=== PATIENT | female | born 1940 | race Caucasian/White ===

== ENCOUNTER 2018-11-26 08:19 | Day surgery (SDC) | payer MEDICARE ==
[~2018-11-26 08:19] MED LIST: Acetaminophen TAB* 325 MG PO PRN; Buffered Lidocaine 1% SYRIN* 1 ML/SYRINGE INTRADERM ONE
[2018-11-26] MEDS ORDERED: Midazolam* 1 MG/ML 2 ML VIAL (2 MG) ONE (10:03)
[2018-11-26 10:55] VITALS: BP 140/69
--- NOTE | 2018-11-26 11:36 | OP ---
DATE OF OPERATION: 11/26/18 [facility] DATE OF : 40 SURGEON: Musa Matos M.D. PREOPERATIVE DIAGNOSIS: Cataract, left eye. POSTOPERATIVE DIAGNOSIS: Cataract, left eye. OPERATIVE PROCEDURE: Extracapsular cataract extraction with intraocular lens implant, left eye. DESCRIPTION OF PROCEDURE: The patient was brought to the operating room after being given 1/2% Alcaine with epinephrine drops in the preoperative area. The eye was prepped and draped in the usual sterile fashion. Sterile drape and eyelid speculum were placed. Again, topical 1/2% Alcaine with epinephrine was given. A paracentesis incision was made at the 3 o'clock position with the No.75 blade. Clear cornea incision 2.2 x 2.2-mm was created at the 6 o'clock position starting at the anterior limbus using the 2.2-mm keratome. The anterior chamber was irrigated with 0.4 mL of 1% non-preservative intracameral lidocaine and filled with DisCoVisc. A capsulorrhexis was completed using the cystotome and the Utrata forceps. Hydrodissection was performed with balanced salt solution. The lens nucleus was removed with the Phacoemulsification handpiece without incident. Cortex was removed with the irrigation-aspiration handpiece. The capsular bag was re-inflated using DisCoVisc and an [id number] implant was inserted with the shooter. The irrigation-aspiration handpiece was used to remove all residual DisCoVisc. The eye was refilled with balanced salt solution and the wound checked and found to be watertight. Topical Maxitrol drops were given. [id number]/[facility] #: [id number] [facility]ENT[facility]heng
[2018-11-26] MEDS ORDERED: acetaZOLAMIDE TAB* 250 MG ONE (16:35)
[2018-11-26] MEDS ORDERED: Phenylephrine OPHTH SOL 2.5%* 2 ML ONE (16:35)
[2018-11-26] MEDS ORDERED: Ketorolac 0.5% OPHTH (NF) 0.5 % 5 ML BTL ONE (16:35)
[2018-11-26] MEDS ORDERED: Neomycin/Polymy/Dex OPTH.SUSP* MAXITROL 0.1% 5 ML ONE (16:35)
[2018-11-26] MEDS ORDERED: Povidone Iodine 5% OPTH* 30 ML BTL ONE (16:35)
[2018-11-26] MEDS ORDERED: Lidocaine 2% w/ EPI 1:200,000* 20 ML SDV VIAL ONE (16:35)
[2018-11-26] MEDS ORDERED: Lidocaine 1% MPF ** 5 ML VIAL ONE (16:35)
[2018-11-26] MEDS ORDERED: Cyclopentolate 1% OPTH.SOL* 2 ML BTL ONE (16:35)
[2018-11-26] MEDS ORDERED: Proparacaine 0.5% OPHTH.SOL* 15 ML BTL ONE (16:35)
== END 2018-11-26 11:08 | disposition home or self-care (01) ==
LOC: OREAST 08:19
PROVIDERS: ATTEND Specialist
DX: H25.812 Combined forms of age-related cataract, left eye (principal); H35.373 Puckering of macula, bilateral; Z95.1 Presence of aortocoronary bypass graft; I10 Essential (primary) hypertension; E78.00 Pure hypercholesterolemia, unspecified; E03.9 Hypothyroidism, unspecified; M10.9 Gout, unspecified; I25.2 Old myocardial infarction
CPT/HCPCS: A9270-GY; J2250; V2632

== ENCOUNTER 2018-12-03 08:58 | Day surgery (SDC) | payer MEDICARE ==
[~2018-12-03 08:58] MED LIST changes: -Acetaminophen TAB* 325 MG PO PRN
[2018-12-03] MEDS ORDERED: Phenylephrine OPHTH SOL 2.5%* 2 ML ONE (09:53)
[2018-12-03] MEDS ORDERED: acetaZOLAMIDE TAB* 250 MG ONE (09:53)
[2018-12-03] MEDS ORDERED: Lidocaine 1% MPF ** 5 ML VIAL ONE (09:53)
[2018-12-03] MEDS ORDERED: Neomycin/Polymy/Dex OPTH.SUSP* MAXITROL 0.1% 5 ML ONE (09:53)
[2018-12-03] MEDS ORDERED: Ketorolac 0.5% OPHTH (NF) 0.5 % 5 ML BTL ONE (09:53)
[2018-12-03] MEDS ORDERED: Lidocaine 2% w/ EPI 1:200,000* 20 ML SDV VIAL ONE (09:53)
[2018-12-03] MEDS ORDERED: Cyclopentolate 1% OPTH.SOL* 2 ML BTL ONE (09:53)
[2018-12-03] MEDS ORDERED: Povidone Iodine 5% OPTH* 30 ML BTL ONE (09:53)
[2018-12-03] MEDS ORDERED: Proparacaine 0.5% OPHTH.SOL* 15 ML BTL ONE (09:54)
[2018-12-03] MEDS ORDERED: Lidocaine 2% PF * 5 ML VIAL ONE (11:13)
[2018-12-03] MEDS ORDERED: Propofol* 10 MG/ML 20 ML BTL ONE (11:13)
--- NOTE | 2018-12-03 12:10 | OP ---
DATE OF OPERATION: 12/03/18 [facility] DATE OF : 40 SURGEON: Musa Matos M.D. PREOPERATIVE DIAGNOSIS: Cataract, right eye. POSTOPERATIVE DIAGNOSIS: Cataract, right eye. OPERATIVE PROCEDURE: Extracapsular cataract extraction with intraocular lens implant, right eye. DESCRIPTION OF PROCEDURE: The patient was brought to the operating room after being given 1/2% Alcaine with epinephrine drops in the preoperative area. The eye was prepped and draped in the usual sterile fashion. Sterile drape and eyelid speculum were placed. Again, topical 1/2% Alcaine with epinephrine was given. A paracentesis incision was made at the 9 o'clock position with the No.75 blade. Clear cornea incision 2.2 x 2.2-mm was created at the 12 o'clock position starting at the anterior limbus using the 2.2-mm keratome. The anterior chamber was irrigated with 0.4 mL of 1% non-preservative intracameral lidocaine and filled with DisCoVisc. A capsulorrhexis was completed using the cystotome and the Utrata forceps. Hydrodissection was performed with balanced salt solution. The lens nucleus was removed with the Phacoemulsification handpiece without incident. Cortex was removed with the irrigation-aspiration handpiece. The capsular bag was re-inflated using DisCoVisc and an [id number] implant was inserted with the shooter. The irrigation-aspiration handpiece was used to remove all residual DisCoVisc. The eye was refilled with balanced salt solution and the wound checked and found to be watertight. Topical Maxitrol drops were given. [id number]/[facility] #: [id number] [facility]
[2018-12-03 12:20] VITALS: BP 136/64
== END 2018-12-03 12:00 | disposition home or self-care (01) ==
LOC: OREAST 08:58
PROVIDERS: ATTEND Specialist
DX: H25.811 Combined forms of age-related cataract, right eye (principal); Z95.1 Presence of aortocoronary bypass graft; H35.373 Puckering of macula, bilateral; Z88.0 Allergy status to penicillin; I10 Essential (primary) hypertension; E78.00 Pure hypercholesterolemia, unspecified; M10.9 Gout, unspecified; I25.10 Atherosclerotic heart disease of native coronary artery without angina pectoris; G47.33 Obstructive sleep apnea (adult) (pediatric); E03.9 Hypothyroidism, unspecified; M79.7 Fibromyalgia
CPT/HCPCS: A9270-GY; J2704; V2632

== ENCOUNTER 2019-05-27 13:55 | Emergency (ER) | payer MEDICARE ==
--- OUTSIDE RECORDS SUMMARY | 2019-05-27 14:05 | XMS REPORT | Continuity of Care Document ---
:1940 External Reference #:[id number] Author Name Sunni Hastings MD (transmitted by agent of provider Judy Ospina) Address [address] [place] [address] Care Team Providers Name Role Phone Offset Label [facility] [facility] - Care Team Information Produce Weigher Prosthetic/Orthotic Supplier Donya Orr MD - Internal Medicine Care Team Information Produce Weigher Problems Description No Information Available Social History Type Date Description Comments Sex Unknown Tobacco Use Start: Unknown Never Smoked Cigarettes Smoking Status Reviewed: 05/06/19 Never Smoked Cigarettes ETOH Use Denies alcohol use Tobacco Use Start: Unknown Patient has never smoked Recreational Drug Use Denies Drug Use Exercise Type/Frequency Exercises sporadically Allergies, Adverse Reactions, Alerts Active Allergies Reaction Severity Comments Date Darvon 03/10/2019 Motrin 03/10/2019 Statins 03/10/2019 Altace 03/10/2019 Tricor 03/10/2019 Morphine Sulfate 03/10/2019 Gantrisin Pediatric 03/10/2019 Penicillin G Potassium 03/10/2019 Avelox 03/10/2019 Tetracycline 03/10/2019 Codeine Phosphate 03/10/2019 Ceclor 03/10/2019 Medications Active Medications SIG Qnty Indications Ordering Provider Date Allopurinol 1 by mouth every Unknown 300mg Tablets day Aspirin 81 1 by mouth every Unknown 81mg Tablets DR day Multi Vitamin 1 by mouth every Unknown Tablets day Ezetimibe 1 by mouth every Unknown 10mg Tablets day Hydrocodone-Acetaminoph 1 or 2 tabs by Unknown en mouth every 6-8 5-325mg Tablets hours as needed for pain Levothyroxine Sodium 1 by mouth every Unknown 125mcg day Tablets Losartan Potassium 1 by mouth every Unknown 100mg day Tablets Metoprolol Succinate ER 1 by mouth every Unknown day 100mg Tablets ER 24HR Vitamin D3 1 by mouth every Unknown 25mcg (1000 Ut) day Capsules Immunizations Description No Information Available Vital Signs Date Vital Result Comment 05/06/2019 9:07am Height 63 inches 5'3" Weight 215.00 lb BMI (Body Mass Index) 38.1 kg/m2 Results Description No Information Available Procedures Date Code Description Status 02/05/2019 24465 ECHO Transthorasic Realtime 2D W Doppler & Color Flow Hosp Completed Medical Devices Description No Information Available Encounters Description No Information Available Assessments Date Code Description Provider 05/06/2019 I12.9 Hypertensive chronic kidney disease with Sunni Hastings MD stage 1 through stage 4 chronic kidney disease, or unspecified chronic kidney disease 05/06/2019 N18.4 Chronic kidney disease, stage 4 (severe) Sunni Hastings MD 05/06/2019 R80.9 Proteinuria, unspecified Sunni Hastings MD 02/05/2019 I35.0 Nonrheumatic aortic (valve) stenosis Ridge Poon DO [facility] Plan of Treatment Future Appointment(s):08/05/2019 9:00 am - Sunni Hastings MD at [id number] /29/2020 - Sunni Hastings MDI12.9 Hypertensive chronic kidney disease with stage 1 through stage 4 chronic kidney disease, or unspecified chronic kidney [id number] Chronic kidney disease, stage 4 (severe)Comments:- check Labs today and at next visit in 3 monthsFollow up:3 [id number] Proteinuria, unspecifiedComments:- recheck UA and UPCR next visit Functional Status Description No Information Available Mental Status Description No Information Available Referrals Description No Information Available
[2019-05-27 15:13] VITALS: BP 152/80
--- NOTE | 2019-05-27 16:25 | UC ---
UC General HPI - HPI Summary HPI Summary: PATIENT COMPLAINS OF SEVERAL DAYS OF INCREASING BILATERAL FOOT AND ANKLE EDEMA. SHE ALSO HAS LEFT LEG PAIN AND WONDERS IF IT'S HER SCIATICA ACTING UP. SHE ALSO HAS A HISTORY OF ARTHRITIS. PATIENT COMPLAINS OF A 10 POUND WEIGHT GAIN OVER THE PAST 1 MONTH. SHE IS EASILY FATIGUED WITH MINIMAL EXERTION AND HAS A HISTORY OF 3 VESSEL CABG 9 YEARS AGO, STAGE IV KIDNEY DISEASE AND ARRIVES WITH A BLOOD PRESSURE OF 199/97. SHE DENIES CHEST PAIN OR SHORTNESS OF BREATH AT REST. - History of Current Complaint Chief Complaint: UCLowerExtremity Stated Complaint: LT LEG PAIN Time Seen by Provider: 05/27/19 15:42 Hx Obtained From: Patient, Family/Powerhouse Mechanic - SON Onset/Duration: Gradual Onset, Lasting Days, Still Present Timing: Constant Onset Severity: Moderate Current Severity: Moderate Pain Intensity: 8 Associated Signs & Symptoms: Negative: Cough, Chest Pain, Dizziness, Fever, Headache, Nausea, Syncope, SOB - Allergy/Home Medications Allergies/Adverse Reactions: Allergies Allergy/AdvReac Type Severity Reaction Status Date / Time MS Cefaclor [From Ceclor] Allergy Mild Hives Verified 05/27/19 14:58 MS Codeine [Codeine] Allergy Mild Hives Verified 05/27/19 14:58 MS Ibuprofen [From Motrin] Allergy Mild severe Verified 05/27/19 14:58 edema MS Meperidine Allergy Mild Hives Verified 05/27/19 14:58 [From Demerol HCl] MS Morphine [Morphine] Allergy Mild Hives Verified 05/27/19 14:58 MS Naproxen [From Aleve] Allergy Mild severe Verified 05/27/19 14:58 edema MS Penicillins [Penicillins] Allergy Mild Hives Verified 05/27/19 14:58 MS Ramipril [From Altace] Allergy Mild Edema Verified 05/27/19 14:58 MS Simvastatin [From Zocor] Allergy Mild Hives Verified 05/27/19 14:58 MS Statins [Statins] Allergy Mild severe Verified 05/27/19 14:58 edema MS Fenofibrate [From Tricor] Allergy Swelling Verified 05/27/19 14:58 MS Moxifloxacin [From Avelox] Allergy Swelling Verified 05/27/19 14:58 MS Propoxyphene [From Darvon] Allergy Swelling Verified 05/27/19 14:58 MS Sulfisoxazole Allergy Blurred Verified 05/27/19 14:58 [From Gantrisin] Vision MS Tetracycline Allergy Nausea And Verified 05/27/19 14:58 [Tetracycline] Vomiting Home Medications: Home Medications Aspirin [Aspir 81] 81 mg PO QAM 08/03/12 [History Confirmed 05/27/19] Hydrocodone/Acetamin 5/500(NF) [Vicodin 5 MG/500 MG (NF)] 1 tab PO QID PRN 08/03 [History Confirmed 05/27/19] Levothyroxine TAB* [Synthroid 125 MCG TAB*] 125 mcg PO QAM 08/03/12 [History Confirmed 05/27/19] Allopurinol [Zyloprim 300 MG TAB] 300 mg PO QAM 11/21/18 [History Confirmed ] Cholecalciferol (Vitamin D3) [Vitamin D3] 1,000 unit PO QAM 11/21/18 [History Confirmed 05/27/19] Ezetimibe TAB* [Zetia TAB*] 10 mg PO QAM 11/21/18 [History Confirmed 05/27/19] Losartan Potassium 100 mg PO QAM 11/21/18 [History Confirmed 05/27/19] Metoprolol Succinate 100 mg PO QAM 11/21/18 [History Confirmed 05/27/19] PMH/Surg Hx/FS Hx/Imm Hx - Additional Past Medical History Additional PMH: FIBROMYALGIA Endocrine History: Hypothyroidism Cardiovascular History: Cardiac Disease - 3V CABG, Hypertension Other Cancer History: SKIN CANCER - Surgical History Surgical History: Yes Surgery Procedure, Year, and Place: left shoulder repair. parathyroid removed. OPEN HEART SURGERY - Family History Known Family History: Negative: Hypertension, Diabetes - Social History Alcohol Use: None Substance Use Type: None Smoking Status (MU): Never Smoked Tobacco Have You Smoked in the Last Year: No Review of Systems All Other Systems Reviewed And Are Negative: Yes Constitutional: Positive: Fatigue ENT: Positive: Negative Respiratory: Positive: Shortness Of Breath Cardiovascular: Positive: Negative Gastrointestinal: Positive: Negative Musculoskeletal: Positive: Edema Physical Exam Triage Information Reviewed: Yes Appearance: Well-Appearing, No Pain Distress, Well-Nourished Vital Signs: Initial Vital Signs Temp 98.5 F 05/27/19 14:47 Pulse 66 05/27/19 14:47 Resp 18 05/27/19 14:47 BP 199/97 05/27/19 14:47 Pulse Ox 99 05/27/19 14:47 Vital Signs Reviewed: Yes Eyes: Positive: Conjunctiva Clear ENT: Positive: Hearing grossly normal Neck: Positive: Supple Respiratory Exam: Normal Cardiovascular Exam: Normal Abdomen Description: Positive: Soft Musculoskeletal: Positive: Edema @ - 2+ PITTING EDEMA BILATERAL FEET/ANKLES Neurological: Positive: Alert Psychological: Positive: Normal Response To Family, Age Appropriate Behavior Skin: Negative: Rashes Course/Dx - Course Course Of Treatment: PATIENT PRESENTS COMPLAINING OF A FEW DAYS OF LEFT LEG PAIN. HAS HAD SCIATICA DISCOMFORT IN THE PAST AND WONDERS IF THIS IS THE CAUSE OF HER PAIN HOWEVER SHE ALSO HAS WORSENING BILATERAL FOOT/ANKLE EDEMA, FATIGUE AND A 10 POUND WEIGHT GAIN IN THE SETTING OF A HISTORY OF A 3 VESSEL CABG 9 YEARS AGO AND STAGE IV KIDNEY DISEASE. BP ELEVATED IN THE UC. PT OFFERED TRANSPORT TO THE ER BY AMBULANCE BUT DECLINES. ADVISED THAT BY NOT TRAVELING IN A MONITORED SETTING SHE COULD BE RISKING WORSENING OF HER CONDITION THAT COULD POSE A THREAT TO HER LIFE, HEALTH AND MEDICAL SAFETY. SHE VERBALIZES UNDERSTANDING AND CONTINUES TO DECLINE AMBULANCE TRANSFER. - Diagnoses Provider Diagnosis: Peripheral edema Discharge ED - Sign-Out/Discharge Documenting (check all that apply): Patient Departure All imaging exams completed and their final reports reviewed: No Studies - Discharge Plan Condition: Stable Disposition: TRANS HIGHER LVL OF CARE FAC Patient Education Materials: Leg Edema (ED) Referrals: Donya Orr MD [Primary Care Provider] - If Needed Additional Instructions: GIVEN YOUR PRESENTATION WHICH INCLUDES ELEVATED BLOOD PRESSURE (199/97, 152/80) , BILATERAL FOOT/ANKLE EDEMA, WEIGHT GAIN AND INCREASED FATIGUE IN THE SETTING OF A HISTORY OF HEART DISEASE STATUS POST 3 VESSEL CABG AND STAGE IV KIDNEY DISEASE YOU REQUIRE A HIGHER LEVEL OF SERVICE THAN WHAT IS AVAILABLE THE URGENT CARE. [place] [facility] [place] FOR FURTHER EVALUATION. YOU HAVE DECLINED TRANSFER TO THE ER BY AMBULANCE. BE ADVISED THAT BY NOT TRAVELING IN A MONITORED SETTING YOU COULD BE RISKING WORSENING OF YOUR CONDITION THAT COULD POSE A THREAT TO YOUR LIFE, HEALTH AND MEDICAL SAFETY. - Billing Disposition and Condition Condition: STABLE Disposition: Trans Higher Lvl of Care Fac
== END 2019-05-27 16:40 | disposition short-term general hospital (02) ==
LOC: UCEAST 13:55
DX: R60.9 Edema, unspecified (principal); N18.4 Chronic kidney disease, stage 4 (severe); E03.9 Hypothyroidism, unspecified; R53.83 Other fatigue; R06.02 Shortness of breath; Z88.0 Allergy status to penicillin; Z88.1 Allergy status to other antibiotic agents; Z88.2 Allergy status to sulfonamides; Z88.5 Allergy status to narcotic agent; Z88.6 Allergy status to analgesic agent; Z88.8 Allergy status to other drugs, medicaments and biological substances; Z79.890 Hormone replacement therapy; Z85.828 Personal history of other malignant neoplasm of skin; Z79.899 Other long term (current) drug therapy; Z79.82 Long term (current) use of aspirin; Z95.1 Presence of aortocoronary bypass graft; R60.0 Localized edema; I50.9 Heart failure, unspecified; M54.5 Low back pain; I13.0 Hypertensive heart and chronic kidney disease with heart failure and stage 1 through stage 4 chronic kidney disease, or unspecified chronic kidney disease; I25.10 Atherosclerotic heart disease of native coronary artery without angina pectoris; I25.2 Old myocardial infarction
CPT/HCPCS: 99212; G0463

== ENCOUNTER 2019-05-27 17:59 | Emergency (ER) | payer MEDICARE ==
--- NOTE | 2019-05-27 19:30 | ED ---
Lower Extremity - HPI Summary HPI Summary: 79 year old F arriving via private car from [facility] to [facility] accompanied by son complains of left lower extremity pain x3-4 days. Hx sciatica. Patient thought her pain was d/t hx sciatica. Patient was seen at [facility] today 05/27/2019 and was referred to the ED to be evaluated for increased swelling in left leg. Hx stage 4 kidney disease. Patient reports lower left back pain and recent weight gain. Son notes 10 pound weight gain in the last month. The patient rates the pain 5/10 in severity. Symptoms aggravated by nothing. Symptoms alleviated by nothing. Medications reviewed. Allergies noted. PMHx reviewed. Hx frequent falls. Hx gout. Hx [place]. Surgical hx reviewed. Hx triple by pass. FHx reviewed. FHx kidney disease. No alcohol, recreational drugs, tobacco. - History of Current Complaint Chief Complaint: EDExtremityLower Stated Complaint: PAIN IN BOTH LEGS PER PT Time Seen by Provider: 05/27/19 19:22 Hx Obtained From: Patient, Family/Process Development Engineer - son Onset of Pain: Days - 3-4 Onset/Duration: Still Present Severity Currently: Moderate Pain Intensity: 5 Pain Scale Used: 0-10 Numeric Timing: Constant Associated Signs And Symptoms: Positive: Other - lower back pain, recent weight gain Aggravating Factor(s): Nothing Alleviating Factor(s): Nothing - Allergies/Home Medications Allergies/Adverse Reactions: Allergies Allergy/AdvReac Type Severity Reaction Status Date / Time MS Cefaclor [From Ceclor] Allergy Mild Hives Verified 05/27/19 21:11 MS Codeine [Codeine] Allergy Mild Hives Verified 05/27/19 21:11 MS Ibuprofen [From Motrin] Allergy Mild severe Verified 05/27/19 21:11 edema MS Meperidine Allergy Mild Hives Verified 05/27/19 21:11 [From Demerol HCl] MS Morphine [Morphine] Allergy Mild Hives Verified 05/27/19 21:11 MS Naproxen [From Aleve] Allergy Mild severe Verified 05/27/19 21:11 edema MS Penicillins [Penicillins] Allergy Mild Hives Verified 05/27/19 21:11 MS Ramipril [From Altace] Allergy Mild Edema Verified 05/27/19 21:11 MS Simvastatin [From Zocor] Allergy Mild Hives Verified 05/27/19 21:11 MS Statins [Statins] Allergy Mild severe Verified 05/27/19 21:11 edema MS Fenofibrate [From Tricor] Allergy Swelling Verified 05/27/19 21:11 MS Moxifloxacin [From Avelox] Allergy Swelling Verified 05/27/19 21:11 MS Propoxyphene [From Darvon] Allergy Swelling Verified 05/27/19 21:11 MS Sulfisoxazole Allergy Blurred Verified 05/27/19 21:11 [From Gantrisin] Vision MS Tetracycline Allergy Nausea And Verified 05/27/19 21:11 [Tetracycline] Vomiting Home Medications: Home Medications Aspirin [Aspir 81] 81 mg PO QAM 08/03/12 [History Confirmed 05/27/19] Hydrocodone/Acetamin 5/500(NF) [Vicodin 5 MG/500 MG (NF)] 1 tab PO QID PRN 08/03 [History Confirmed 05/27/19] Levothyroxine TAB* [Synthroid 125 MCG TAB*] 125 mcg PO QAM 08/03/12 [History Confirmed 05/27/19] Allopurinol [Zyloprim 300 MG TAB] 300 mg PO QAM 11/21/18 [History Confirmed ] Cholecalciferol (Vitamin D3) [Vitamin D3] 1,000 unit PO QAM 11/21/18 [History Confirmed 05/27/19] Ezetimibe TAB* [Zetia TAB*] 10 mg PO QAM 11/21/18 [History Confirmed 05/27/19] Losartan Potassium 100 mg PO QAM 11/21/18 [History Confirmed 05/27/19] Metoprolol Succinate 100 mg PO QAM 11/21/18 [History Confirmed 05/27/19] predniSONE 20 mg TAB [Deltasone 20 MG TAB*] 40 mg PO DAILY #10 tab 05/27/19 [Rx] PMH/Surg Hx/FS Hx/Imm Hx Endocrine/Hematology History: Reports: Hx Thyroid Disease Denies: Hx Diabetes Cardiovascular History: Reports: Hx Coronary Artery Disease, Hx Hypertension, Hx Myocardial Infarction Respiratory History: Denies: Hx Asthma, Hx Chronic Obstructive Pulmonary Disease (COPD) GI History: Denies: Hx Ulcer History: Denies: Hx Renal Disease Musculoskeletal History: Reports: Hx Arthritis - SHOULDERS, Hx Bursitis, Hx Tendonitis Denies: Hx Rheumatoid Arthritis, Hx Osteoporosis Sensory History: Reports: Hx Cataracts, Hx Contacts or Glasses - READERS Denies: Hx Hearing Aid Opthamlomology History: Reports: Hx Cataracts, Hx Contacts or Glasses - READERS Psychiatric History: Denies: Hx Panic Disorder - Cancer History Cancer Type, Location and Year: skin ca Hx Chemotherapy: No Hx Radiation Therapy: No - Surgical History Surgery Procedure, Year, and Place: left shoulder repair. parathyroid removed. OPEN HEART SURGERY--triple bypass Hx Anesthesia Reactions: No - Immunization History Immunizations Up to Date: Yes Infectious Disease History: No Infectious Disease History: Denies: Hx Hepatitis, Hx Human Immunodeficiency Virus (HIV), History Other Infectious Disease, Traveled Outside the [place] in Last 30 Days - Family History Known Family History: Positive: Cardiac Disease, Other - kidney disease Negative: Hypertension, Diabetes - Social History Alcohol Use: None Hx Substance Use: No Substance Use Type: Reports: None Hx Tobacco Use: No Smoking Status (MU): Never Smoked Tobacco Have You Smoked in the Last Year: No - Additional Comments History Additional Comments: sciatica stage 4 kidney disease gout frequent falls [place] Review of Systems - ROS Summary Review of Systems Summary: Home Medications Medication Instructions Recorded Confirmed Type Aspirin [Aspir 81] 81 mg PO QAM 08/03/12 05/27/19 History Hydrocodone/Acetamin 5/500(NF) 1 tab PO QID PRN 08/03/12 05/27/19 History [Vicodin 5 MG/500 MG (NF)] Levothyroxine TAB* [Synthroid 125 125 mcg PO QAM 08/03/12 05/27/19 History MCG TAB*] Allopurinol [Zyloprim 300 MG TAB] 300 mg PO QAM 11/21/18 05/27/19 History Cholecalciferol (Vitamin D3) 1,000 unit PO QAM 11/21/18 05/27/19 History [Vitamin D3] Ezetimibe TAB* [Zetia TAB*] 10 mg PO QAM 11/21/18 05/27/19 History Losartan Potassium 100 mg PO QAM 11/21/18 05/27/19 History Metoprolol Succinate 100 mg PO QAM 11/21/18 05/27/19 History Positive: Other - recent weight gain Positive: Edema, Other - left lower extremity pain, lower back pain All Other Systems Reviewed And Are Negative: Yes Physical Exam - Summary Physical Exam Summary: General: Obese FEMALE. No acute distress. She seems confused and to have poor memory. HEENT: Normocephalic, Atraumatic. Eyes: Conjuctiva normal, PERRL. Oropharynx: Clear, mucous membranes moist, (-) exudates. Neck: Soft, FROM, (-) lymphadenopathy, (-) thyromegaly, (-) JVD. Cardiovascular: Normal sinus rhythm, (-) murmur. Lungs: Clear to auscultation bilaterally (-) wheezes, bibasilar crackles, (-) rhonchi. Abdomen: Soft, non-tender, non-distended, (-) organomegaly, normal bowel sounds. Back: (-) CVA tenderness, lower lumbar tenderness midline Extremities: +1 pitting edema; normal strength, sensation, pulses, and capillary refill in the lower extremities Skin: Warm, dry, (-) rash. Neuro: Alert and oriented x3, moves all extremities equally. No ataxia. No gait disturbance. No sensory deficit. Normal strength, normal sensation. Psychiatric: Mood normal, affect normal. Triage Information Reviewed: Yes Vital Signs On Initial Exam: Initial Vitals Temp Pulse Resp BP Pulse Ox 98.8 F 76 20 206/95 97 05/27/19 18:00 05/27/19 18:00 05/27/19 18:00 05/27/19 18:00 05/27/19 18:00 Vital Signs Reviewed: Yes Procedures - Sedation Patient Received Moderate/Deep Sedation with Procedure: No Diagnostics - Vital Signs Vital Signs Temp Pulse Resp BP Pulse Ox 05/27/19 19:10 64 190/83 97 05/27/19 19:09 62 96 05/27/19 18:00 98.8 F 76 20 206/95 97 - Laboratory Result Diagrams: 05/27/19 21:45 05/27/19 21:45 Lab Statement: Any lab studies that have been ordered have been reviewed, and results considered in the medical decision making process. - Radiology CXR Radiology Interpretation Completed By: ED Physician - increased interstitial markings consistent with CHF pending official report - EKG 2134 Cardiac Rate: Bradycardia - 57 BPM EKG Rhythm: Sinus Bradycardia Summary of EKG Findings: EKG at 2134 reveals normal sinus bradycardia with rate of 57 BPM, no acute changes, no ischemic changes. This EKG was reviewed and interpreted by Dr. Irizarry. Re-Evaluation - Re-Evaluation First Eval Re-Evaluation Time: 23:08 Comment: I have discussed results with the patient and symptoms have resolved. Discussed symptoms that warrant immediate return to ED. Lower Extremity Course/Dx - Course Course Of Treatment: 79-year-old female with left sided hip pain radiating down her leg. Patient states she went to urgent care for this sciatica. She states she has had it previously. She is allergic to anti-inflammatories and has significant allergic reaction if she takes them. She does have oxycodone which is not helping. At urgent care they noted her to have stage IV kidney disease. Swelling of her lower extremities and recent weight gain. Chronic shortness of breath. They referred her here for further workup. Patient's physical exam demonstrates basilar crackles. Lower lumbar tenderness midline. Mild pain of the right leg. Normal sensation. Normal strength. Normal pulses and capillary refill of works remedies bilaterally. +1 edema. Workup demonstrates improving kidney function from last month. Negative BNP. Negative troponin. Normal chest x-ray except increased interstitial fluids. Because patient cannot take anti-inflammatories. She is started on Solu-Medrol. 5 day burst prescribed. Advised ice. Follow up with PCP. Follow up sooner for any worsening symptoms. - Diagnoses Provider Diagnoses: Lower extremity edema, Chronic CHF, Lower back pain Discharge ED - Sign-Out/Discharge Documenting (check all that apply): Patient Departure - Discharge Plan Condition: Stable Disposition: HOME Prescriptions: predniSONE 20 mg TAB [Deltasone 20 MG TAB*] 40 mg PO DAILY #10 tab Patient Education Materials: Heart Failure (ED), Sciatica (ED), Leg Edema (ED) Referrals: Donya Orr MD [Primary Care Provider] - 3 Days Additional Instructions: Please follow up with your primary care physician within 3 days. Please return to Emergency Department for any new or worsening symptoms. - Billing Disposition and Condition Condition: STABLE Disposition: Home - Attestation Statements Document Initiated by Scribe: Yes Documenting Scribe: Anushka Leger Provider For Whom Scribe is Documenting (Include Credential): Tarsha Irizarry MD Scribe Attestation: Anushka Jack, scribed for Tarsha Irizarry MD on 05/28/19 at 0222. Scribe Documentation Reviewed: Yes Provider Attestation: The documentation as recorded by the scribe, Anushka Leger accurately reflects the service I personally performed and the decisions made by me, Tarsha Irizarry MD Status of Gallo Document: Viewed
[2019-05-27 21:55] LABS: ABS Eosinophils 0.3 10^3/ul (0-0.6); ABS Lymphocytes 3.9 10^3/ul (1.0-4.8); ABS Monocytes 0.7 10^3/ul (0-0.8); ABS Neutrophils 4.4 10^3/ul (1.5-7.7); Eosinophil % 2.8 %; Hematocrit 39 % (35-47); Hemoglobin 12.8 g/dL (12.0-16.0); Lymphocyte % 42.2 %; Mean Corpuscular HGB Conc 33 g/dL (31-36); Mean Corpuscular Hemoglobin 31 pg (27-31); Mean Corpuscular Volume 93 fL (80-97); Mean Platelet Volume 7.3 fL (7.4-10.4); Nucleated Red Blood Cells % 0.1; Platelet Count 242 10^3/uL (150-450); Red Blood Count 4.18 10^6 /uL (3.70-4.87); Red Cell Distribution Width 15 % (10-15); White Blood Count 9.2 10^3/uL (3.5-10.8)
[2019-05-27 22:02] LABS: INR 0.97 (0.82-1.09)
[2019-05-27 22:14] LABS: Albumin 3.9 g/dL (3.2-5.2); Albumin/Globulin Ratio 1.4 (1-3); BUN/Creatinine Ratio 14.6 (8-20); Calcium 9.3 mg/dL (8.6-10.3); EGFR African American 29.4 (>60); EGFR Non-African American 24.3 (>60); Globulin 2.8 g/dL (2-4); Potassium 4.3 mmol/L (3.5-5.0); Total Bilirubin 0.4 mg/dL (0.2-1.0); Total Protein 6.7 g/dL (6.4-8.9); Troponin I 0.01 ng/mL (<0.03)
[2019-05-27] MEDS ORDERED: methylPREDNISolone SOD 40 MG* 1 ML VIAL IV ONE (22:27)
[2019-05-27 23:05] LABS: TSH (Thyroid Stimulating Horm) 2.1 mcIU/mL (0.34-5.60)
[2019-05-27 23:18] VITALS: BP 157/82
== END 2019-05-27 23:18 | disposition home or self-care (01) ==
LOC: ED 17:59
DX: R60.0 Localized edema (principal); I50.9 Heart failure, unspecified; M54.5 Low back pain; I13.0 Hypertensive heart and chronic kidney disease with heart failure and stage 1 through stage 4 chronic kidney disease, or unspecified chronic kidney disease; N18.4 Chronic kidney disease, stage 4 (severe); E03.9 Hypothyroidism, unspecified; I25.10 Atherosclerotic heart disease of native coronary artery without angina pectoris; I25.2 Old myocardial infarction; Z95.1 Presence of aortocoronary bypass graft; Z79.82 Long term (current) use of aspirin; Z79.890 Hormone replacement therapy; Z79.899 Other long term (current) drug therapy; Z88.6 Allergy status to analgesic agent; Z88.1 Allergy status to other antibiotic agents; Z88.5 Allergy status to narcotic agent; Z88.0 Allergy status to penicillin; Z88.2 Allergy status to sulfonamides; Z88.8 Allergy status to other drugs, medicaments and biological substances
CPT/HCPCS: 36415; 71045; 80053; 83605; 83880; 84443; 84484; 85025; 85610; 93005; 96374; 99284; J2920

== ENCOUNTER 2020-06-16 18:23 | Inpatient (IN) ==
[2020-06-16 20:54] LABS: ABS Basophils 0.1 10^3/ul (0-0.2); ABS Eosinophils 0.1 10^3/ul (0-0.6); ABS Lymphocytes 3.1 10^3/ul (1.0-4.8); ABS Monocytes 0.8 10^3/ul (0-0.8); ABS Neutrophils 8.4 10^3/ul (1.5-7.7); Eosinophil % 0.6 %; Hematocrit 43 % (35-47); Hemoglobin 14.4 g/dL (12.0-16.0); Lymphocyte % 24.8 %; Mean Corpuscular HGB Conc 34 g/dL (31-36); Mean Corpuscular Hemoglobin 31 pg (27-31); Mean Corpuscular Volume 93 fL (80-97); Mean Platelet Volume 8.1 fL (7.4-10.4); Nucleated Red Blood Cells % 0.1; Platelet Count 284 10^3/uL (150-450); Red Blood Count 4.62 10^6 /uL (3.70-4.87); Red Cell Distribution Width 16 % (10-15); White Blood Count 12.4 10^3/uL (3.5-10.8)
[2020-06-16 21:12] LABS: ALT 11 U/L (7-52); Albumin 4.2 g/dL (3.2-5.2); Albumin/Globulin Ratio 1.3 (1-3); Alkaline Phosphatase 83 U/L (34-104); BUN/Creatinine Ratio 25.3 (8-20); Blood Urea Nitrogen 83 mg/dL (6-24); C Reactive Protein 28.22 mg/L (<8.01); CO2 Carbon Dioxide 38 mmol/L (22-32); Calcium 9.8 mg/dL (8.6-10.3); Chloride 77 mmol/L (101-111); EGFR African American 16.4 (>60); EGFR Non-African American 13.5 (>60); Globulin 3.2 g/dL (2-4); Glucose 190 mg/dL (70-100); Sodium 130 mmol/L (135-145); Total Protein 7.4 g/dL (6.4-8.9)
[2020-06-16 21:18] LABS: Anion Gap 15 mmol/L (2-11); Troponin I 0.04 ng/mL (<0.03)
[2020-06-16 21:27] LABS: Activated Partial Thrombo Time 24.1 seconds (26.0-38.0); INR 0.97 (0.82-1.09)
[2020-06-16 21:50] LABS: Ferritin 116.9 ng/mL (11-307)
[2020-06-16 22:41] LABS: Potassium Redraw 2.5 mmol/L (3.5-5.0)
[2020-06-16] MEDS ORDERED: Potassium Chlor 20 meq TAB.ER PO ONE (22:42)
[2020-06-16] MEDS ORDERED: NS 0.9% 500 ml BAG 500 ML IV ONE (23:23)
[2020-06-16] MEDS ORDERED: Potassium Chloride LIQUID 20 MEQ/15 ML LIQUID PO SCH (23:45)
[2020-06-16] MEDS ORDERED: NS 0.9% 1000 ml BAG 500 ML IV ONE (23:45)
[2020-06-16] MEDS ORDERED: KCL 20 MEQ/100 ML IVPREMIX 20 MEQ/100 ML BAG IV SCH (23:45)
[2020-06-17] MEDS: KCL 10 MEQ/50 ML IVPREMIX 10 MEQ/50 ML BAG IV SCH ×6 (00:40→20:57)
[2020-06-17 00:57] LABS: Phosphorus 4.8 mg/dL (2.5-5.0)
[2020-06-17 01:27] LABS: Troponin I 0.04 ng/mL (<0.03)
[2020-06-17] MEDS: HYDROcodone/ACETAMIN 5/325 mg TAB PO PRN ×3 (02:35→19:31)
[2020-06-17] MEDS: Aspirin EC 81 mg TAB.EC (enteric coated) PO SCH ×2 (02:35→08:31)
[2020-06-17 03:42] LABS: ABS Basophils 0.1 10^3/ul (0-0.2); ABS Eosinophils 0.2 10^3/ul (0-0.6); ABS Lymphocytes 4.6 10^3/ul (1.0-4.8); ABS Monocytes 0.8 10^3/ul (0-0.8); ABS Neutrophils 5.6 10^3/ul (1.5-7.7); Eosinophil % 2.1 %; Hematocrit 40 % (35-47); Hemoglobin 13.5 g/dL (12.0-16.0); Lymphocyte % 40.6 %; Mean Corpuscular HGB Conc 34 g/dL (31-36); Mean Corpuscular Hemoglobin 31 pg (27-31); Mean Corpuscular Volume 92 fL (80-97); Mean Platelet Volume 7.8 fL (7.4-10.4); Nucleated Red Blood Cells % 0.1; Platelet Count 272 10^3/uL (150-450); Red Blood Count 4.36 10^6 /uL (3.70-4.87); Red Cell Distribution Width 15 % (10-15); White Blood Count 11.3 10^3/uL (3.5-10.8)
[2020-06-17 03:57] LABS: BUN/Creatinine Ratio 25.4 (8-20); Calcium 9.5 mg/dL (8.6-10.3); EGFR Non-African American 13.2 (>60)
[2020-06-17 04:02] LABS: Potassium 2.5 mmol/L (3.5-5.0)
[2020-06-17] MEDS ORDERED: KCL 10 MEQ/50 ML IVPREMIX 10 MEQ/50 ML BAG ONE (05:14)
[2020-06-17 06:25] LABS: BUN/Creatinine Ratio 26.1 (8-20); Blood Urea Nitrogen 82 mg/dL (6-24); CO2 Carbon Dioxide 39 mmol/L (22-32); Calcium 9.2 mg/dL (8.6-10.3); Chloride 80 mmol/L (101-111); EGFR African American 17.2 (>60); EGFR Non-African American 14.2 (>60); Glucose 171 mg/dL (70-100); Sodium 132 mmol/L (135-145)
[2020-06-17] MEDS ORDERED: Potassium Chloride LIQUID 20 MEQ/15 ML LIQUID PO ONE (06:31)
[2020-06-17] MEDS ORDERED: KCL 20 MEQ/100 ML IVPREMIX 20 MEQ/100 ML BAG IV ONE (06:31)
[2020-06-17 06:38] LABS: Troponin I 0.05 ng/mL (<0.03)
[2020-06-17 07:33] LABS: Anion Gap 13 mmol/L (2-11); Potassium 2.7 mmol/L (3.5-5.0)
[2020-06-17] MEDS ORDERED: Potassium Chlor 20 meq TAB.ER PO ONE ×2 (08:26→15:31)
[2020-06-17] MEDS: Cholecalciferol (VIT D3) 1,000 unit TAB PO SCH (08:31)
[2020-06-17] MEDS ORDERED: Potassium Chlor 20 meq TAB.ER PO SCH (09:00)
[2020-06-17 13:26] LABS: BUN/Creatinine Ratio 25.3 (8-20); Calcium 9.6 mg/dL (8.6-10.3); EGFR African American 17.1 (>60); EGFR Non-African American 14.1 (>60); Potassium 2.8 mmol/L (3.5-5.0)
[2020-06-17] MEDS: Heparin 5000 UNITS/ML 1 mL VIAL SUBCUT SCH (16:54)
[2020-06-17 19:13] LABS: Urine Appearance Cloudy; Urine Bilirubin Negative (Negative); Urine Blood 1+ (Negative); Urine Color Yellow; Urine Glucose 1+(50 mg/dL) (Negative); Urine Ketones Negative (Negative); Urine Nitrite Negative (Negative); Urine Protein 2+(100 mg/dL) (Negative); Urine Urobilinogen Negative (Negative)
[2020-06-17 19:15] LABS: Urine Bacteria Absent (Absent); Urine Red Blood Cell Trace(0-2/hpf) (Absent); Urine Squamous Epithelial Cell Present (Absent); Urine White Blood Cell Trace(0-5/hpf) (Absent)
[2020-06-17 20:21] LABS: BUN/Creatinine Ratio 25.5 (8-20); Calcium 9.3 mg/dL (8.6-10.3); EGFR Non-African American 14.9 (>60); Magnesium 2.3 mg/dL (1.9-2.7); Potassium 3.2 mmol/L (3.5-5.0)
[2020-06-18 01:03] LABS: Calcium 9.4 mg/dL (8.6-10.3); EGFR Non-African American 15.7 (>60)
[2020-06-18 01:24] LABS: Potassium 3.7 mmol/L (3.5-5.0)
[2020-06-18] MEDS: Heparin 5000 UNITS/ML 1 mL VIAL SUBCUT SCH ×2 (05:34→12:34)
[2020-06-18] MEDS: HYDROcodone/ACETAMIN 5/325 mg TAB PO PRN ×3 (05:34→16:03)
[2020-06-18] MEDS ORDERED: Heparin 5000 UNITS/ML 1 mL VIAL SUBCUT SCH (06:00)
[2020-06-18] MEDS: Aspirin EC 81 mg TAB.EC (enteric coated) PO SCH (07:46)
[2020-06-18] MEDS: Cholecalciferol (VIT D3) 1,000 unit TAB PO SCH (07:46)
[2020-06-18] MEDS ORDERED: Potassium Chlor 20 meq TAB.ER PO ONE (15:10)
[2020-06-18] MEDS: Enoxaparin 30 MG/0.3 ML SYR SUBCUT SCH (19:45)
[2020-06-19] MEDS: HYDROcodone/ACETAMIN 5/325 mg TAB PO PRN ×3 (06:18→21:32)
[2020-06-19 07:08] LABS: BUN/Creatinine Ratio 24.7 (8-20); Calcium 9.9 mg/dL (8.6-10.3); EGFR African American 22.7 (>60); EGFR Non-African American 18.8 (>60); Magnesium 2.4 mg/dL (1.9-2.7); Potassium 3.3 mmol/L (3.5-5.0)
[2020-06-19] MEDS: Aspirin EC 81 mg TAB.EC (enteric coated) PO SCH (09:52)
[2020-06-19] MEDS: Cholecalciferol (VIT D3) 1,000 unit TAB PO SCH (09:53)
[2020-06-19] MEDS ORDERED: Potassium Chlor 20 meq TAB.ER PO SCH (10:00)
[2020-06-19] MEDS ORDERED: Potassium Chlor 20 meq TAB.ER PO ONE (11:00)
[2020-06-19] MEDS: Enoxaparin 30 MG/0.3 ML SYR SUBCUT SCH (19:12)
[2020-06-20 07:37] LABS: BUN/Creatinine Ratio 19.6 (8-20); EGFR African American 19.7 (>60); EGFR Non-African American 16.3 (>60); Magnesium 2.1 mg/dL (1.9-2.7); Potassium 3.2 mmol/L (3.5-5.0)
[2020-06-20] MEDS: Aspirin EC 81 mg TAB.EC (enteric coated) PO SCH (08:35)
[2020-06-20] MEDS: HYDROcodone/ACETAMIN 5/325 mg TAB PO PRN ×2 (08:36→14:37)
[2020-06-20] MEDS: Cholecalciferol (VIT D3) 1,000 unit TAB PO SCH (08:36)
[2020-06-20] MEDS ORDERED: Potassium Chlor 20 meq TAB.ER PO SCH (09:00)
[2020-06-20] MEDS: KCL 10 MEQ/50 ML IVPREMIX 10 MEQ/50 ML BAG IV SCH ×2 (10:32→12:31)
[2020-06-20 16:19] VITALS: BP 150/90
== END 2020-06-20 16:15 | disposition home health service (06) | DRG 683 ==
LOC: ED 18:23 → MED 22:56
PROVIDERS: ADMIT Internal Medicine; ATTEND Internal Medicine

== ENCOUNTER 2023-03-15 23:33 | Inpatient (IN) ==
[2023-03-16 00:43] LABS: ABS Eosinophils 0.1 10^3/uL (0.0-0.5); ABS Lymphocytes 1.8 10^3/uL (1.0-4.8); ABS Monocytes 0.5 10^3/uL (0.0-0.9); ABS Neutrophils 9.2 10^3/uL (1.5-7.6); Eosinophil % 0.6 %; Hematocrit 42.1 % (35-45); Hemoglobin 13.8 g/dL (11.5-14.3); Lymphocyte % 15.8 %; Mean Corpuscular Hgb Conc 32.7 g/dL (31-36); Mean Corpuscular Volume 91.7 fL (80-97); Mean Platelet Volume 8.1 fL (7.5-11.2); Platelet Count 269 10^3/uL (150-450); Red Blood Count 4.59 10^6/uL (3.63-4.92); Red Cell Distribution Width 15.6 % (12-17); White Blood Count 11.7 10^3/uL (3.8-11.8)
[2023-03-16 01:01] LABS: Albumin 4.5 g/dL (3.2-5.2); Albumin/Globulin Ratio 1.3 (1-3); Calcium 9.7 mg/dL (8.6-10.3); Creatinine, Serum 2.95 mg/dL (0.51-0.95); Globulin 3.6 g/dL (2-4); Potassium 3.9 mmol/L (3.5-5.0); Total Bilirubin 0.4 mg/dL (0.2-1.0); Total Protein 8.1 g/dL (6.4-8.9); eGFR CKD-EPI 15.4 (>60)
[2023-03-16 03:42] LABS: C Reactive Protein 3.2 mg/L (<8.01)
[2023-03-16] MEDS ORDERED: Bumetanide IV 0.25 MG/ML 4 ml VIAL (1 mg) IV SLOW PU ONE ×3 (05:14→15:45)
[2023-03-16] MEDS ORDERED: HYDROcodone/ACETAMIN 5/325 mg TAB PO PRN (05:15)
[2023-03-16] MEDS: Heparin 5000 UNITS/ML 1 mL VIAL SUBCUT SCH ×3 (06:06→21:22)
[2023-03-16] MEDS: Lidocaine PATCH 5% PATCH TRANSDERM SCH (06:10)
[2023-03-16] MEDS: Potassium Chlor 20 meq TAB.ER PO SCH (10:04)
[2023-03-16] MEDS: Aspirin EC 81 mg TAB.EC (enteric coated) PO SCH (10:05)
[2023-03-16] MEDS: Cholecalciferol (VIT D3) 1,000 unit TAB PO SCH (10:05)
[2023-03-16] MEDS ORDERED: Bumetanide IV 0.25 MG/ML 10 ml VIAL (2.5 mg) IV SLOW PU ONE (11:30)
[2023-03-16] MEDS: HYDROcodone/ACETAMIN 5/325 mg TAB PO SCH ×2 (11:47→12:23)
[2023-03-16 11:56] LABS: ABS Basophils 0.1 10^3/uL (0.0-0.1); ABS Eosinophils 0.1 10^3/uL (0.0-0.5); ABS Nucleated RBC 0.01 10^3/ul; Eosinophil % 0.5 %; Hematocrit 38.3 % (35-45); Hemoglobin 12.8 g/dL (11.5-14.3); Lymphocyte % 16.4 %; Mean Corpuscular Hemoglobin 30.5 pg (27-33); Mean Corpuscular Hgb Conc 33.3 g/dL (31-36); Mean Corpuscular Volume 91.6 fL (80-97); Mean Platelet Volume 7.7 fL (7.5-11.2); Nucleated Red Blood Cells % 0.1 %/100WBC (0.0-0.8); Platelet Count 253 10^3/uL (150-450); Red Blood Count 4.19 10^6/uL (3.63-4.92); Red Cell Distribution Width 15.8 % (12-17); White Blood Count 12.1 10^3/uL (3.8-11.8)
[2023-03-16 12:18] LABS: Calcium 9.4 mg/dL (8.6-10.3); Creatinine, Serum 2.88 mg/dL (0.51-0.95); Magnesium 2.1 mg/dL (1.9-2.7); Phosphorus 4.3 mg/dL (2.5-5.0); Potassium 3.5 mmol/L (3.5-5.0); eGFR CKD-EPI 15.8 (>60)
[2023-03-16 15:36] LABS: PCO2 Arterial 50 mmHg (35-45); PO2 Arterial 64 mmHg (80-100)
[2023-03-16] MEDS ORDERED: Potassium Chlor 20 meq TAB.ER PO ONE (21:00)
[2023-03-17] MEDS: Heparin 5000 UNITS/ML 1 mL VIAL SUBCUT SCH ×3 (06:08→20:30)
[2023-03-17 07:51] LABS: ABS Lymphocytes 2.7 10^3/uL (1.0-4.8); ABS Monocytes 0.9 10^3/uL (0.0-0.9); ABS Neutrophils 7.7 10^3/uL (1.5-7.6); ABS Nucleated RBC 0.01 10^3/ul; Eosinophil % 0.2 %; Hematocrit 39.3 % (35-45); Hemoglobin 12.8 g/dL (11.5-14.3); Lymphocyte % 23.8 %; Mean Corpuscular Hemoglobin 29.8 pg (27-33); Mean Corpuscular Hgb Conc 32.6 g/dL (31-36); Mean Corpuscular Volume 91.4 fL (80-97); Mean Platelet Volume 8.3 fL (7.5-11.2); Platelet Count 261 10^3/uL (150-450); Red Cell Distribution Width 15.7 % (12-17); White Blood Count 11.4 10^3/uL (3.8-11.8)
[2023-03-17] MEDS: Cholecalciferol (VIT D3) 1,000 unit TAB PO SCH (07:53)
[2023-03-17] MEDS: Potassium Chlor 20 meq TAB.ER PO SCH (07:54)
[2023-03-17] MEDS: Aspirin EC 81 mg TAB.EC (enteric coated) PO SCH (07:54)
[2023-03-17] MEDS: Lidocaine PATCH 5% PATCH TRANSDERM SCH (07:55)
[2023-03-17 08:01] LABS: Albumin 4.1 g/dL (3.2-5.2); Albumin/Globulin Ratio 1.4 (1-3); Calcium 9.7 mg/dL (8.6-10.3); Creatinine, Serum 2.74 mg/dL (0.51-0.95); Magnesium 2.2 mg/dL (1.9-2.7); Total Protein 7.1 g/dL (6.4-8.9); eGFR CKD-EPI 16.8 (>60)
[2023-03-17] MEDS: Bumetanide IV 0.25 MG/ML 4 ml VIAL (1 mg) IV SLOW PU SCH (20:30)
[2023-03-17 21:17] LABS: Urine Appearance Clear; Urine Bilirubin Negative (Negative); Urine Blood Negative (Negative); Urine Color Yellow; Urine Glucose 1+(50 mg/dL) (Negative); Urine Ketones Negative (Negative); Urine Nitrite Negative (Negative); Urine Protein 3+(>=500 mg/dL) (Negative); Urine Specific Gravity 1.012 (1.002-1.030); Urine Urobilinogen Negative (Negative)
[2023-03-17 21:24] LABS: Urine Bacteria Absent (Absent); Urine Red Blood Cell Trace(0-2/hpf) (Absent); Urine Squamous Epithelial Cell Present (Absent); Urine White Blood Cell Trace(0-5/hpf) (Absent)
[2023-03-17] MEDS ORDERED: HYDROcodone/ACETAMIN 5/325 mg TAB PO ONE (21:54)
[2023-03-18] MEDS: Heparin 5000 UNITS/ML 1 mL VIAL SUBCUT SCH (05:40)
[2023-03-18 06:38] LABS: Hematocrit 36.5 % (35-45); Mean Corpuscular Hgb Conc 32.7 g/dL (31-36); Mean Corpuscular Volume 91.8 fL (80-97); Platelet Count 250 10^3/uL (150-450); Red Blood Count 3.98 10^6/uL (3.63-4.92); Red Cell Distribution Width 15.8 % (12-17); White Blood Count 10.5 10^3/uL (3.8-11.8)
[2023-03-18 06:58] LABS: Albumin 3.7 g/dL (3.2-5.2); Albumin/Globulin Ratio 1.3 (1-3); Calcium 9.2 mg/dL (8.6-10.3); Creatinine, Serum 2.7 mg/dL (0.51-0.95); Globulin 2.8 g/dL (2-4); Potassium 3.9 mmol/L (3.5-5.0); Total Bilirubin 0.5 mg/dL (0.2-1.0); Total Protein 6.5 g/dL (6.4-8.9); eGFR CKD-EPI 17.1 (>60)
[2023-03-18] MEDS: Cholecalciferol (VIT D3) 1,000 unit TAB PO SCH (07:37)
[2023-03-18] MEDS: Potassium Chlor 20 meq TAB.ER PO SCH (07:37)
[2023-03-18] MEDS: Aspirin EC 81 mg TAB.EC (enteric coated) PO SCH (07:37)
[2023-03-18] MEDS: Lidocaine PATCH 5% PATCH TRANSDERM SCH (07:38)
[2023-03-18] MEDS: Bumetanide IV 0.25 MG/ML 4 ml VIAL (1 mg) IV SLOW PU SCH (07:38)
[2023-03-18] MEDS ORDERED: HYDROcodone/ACETAMIN 5/325 mg TAB PO PRN (10:48)
[2023-03-18 13:38] VITALS: BP 108/62
== END 2023-03-18 15:45 | disposition home or self-care (01) | DRG 189 ==
LOC: EDHOLD 23:33 → ED 23:33 → SUATTDRO 03-16 03:32 → SSU 03-16 04:30
PROVIDERS: ADMIT Student in an Organized Health Care Education/Training Program; ATTEND Internal Medicine